=== PATIENT | male | born 1970 | race African-American/Black ===

== ENCOUNTER 2019-01-18 15:26 | Emergency (ER) | payer MEDICAID ==
[2019-01-18 15:50] VITALS: BP 124/83
== END 2019-01-18 17:30 | disposition home or self-care (01) ==
LOC: ER 15:26
DX: S01.01XD Laceration without foreign body of scalp, subsequent encounter (principal); I10 Essential (primary) hypertension; F17.200 Nicotine dependence, unspecified, uncomplicated; X58.XXXD Exposure to other specified factors, subsequent encounter
CPT/HCPCS: 99281; 99282